=== PATIENT | male | born 1955 | race Caucasian/White ===

== ENCOUNTER 2021-10-06 11:35 | Day surgery (SDC) | payer MEDICARE, OTHER ==
[~2021-10-06] VITALS: Ht 177.8 cm; Wt 91.0 kg
[~2021-10-06 11:35] MED LIST: CANDICIDAL CAP1 EACH PO; FLOMAX0.4 MG PO; MELOXICAM5 MG PO; OXYCODON-ACETA1 EAC2 PO; PERCOCET 7.5-31 EACH PO
--- NOTE | 2021-10-06 15:14 | NUR ---
10/06/21 Avelino4 Kavitha Romero 1511- PT ARRIVES TO PACU AWAKE AND TALKING. PT REPORTS NO PAIN OR NAUSEA. RESP EVEN AND UNLABORED. OXYGEN SAT MID TO HIGH 90'S ON RA.
--- NOTE | 2021-10-06 17:54 | NUR ---
PT ARRIVED FROM PACU. REPORT RECEIVED FROM ESPERANZA CR. PT TRANSFERES SELF TO BED. ABLE TO AMBULATE ACROSS ROOM WITH OUT DIZZINESS OR OTHER ISSUES. PT DENIES PAIN, NASUEA, LIGHTHEADEDNESS OR OTHER S/S OF BRADYCARDIA. TELEMETRY MONITORING IN PLACE, SINUS BRADYCARDIA NOTED WITH HEAR RATE 50-60'S. HEART TONES REGULAR AT THIS TIME. PT REPORTS HE CONTINUES TO PASS MALORIE. ABDOMEN SOFT. BOWEL TONES ACTIVE. DINNER PROVIDED FOR PT. PT TOELRATING REGULAR DIET WIHOUT ISSUE AT THIS TIME. PT ALERT AND OREINTED. LUNG SOUNDS CLEAR. NO ADDITONAL REQUESTS OR COMPLAINTS. PT ORIENTED TO ROOM AND UPDATED ON PLAN OF CARE. CALL LIGHT WITHIN REACH. BED RAILS UP. BED ALARM ON.
--- NOTE | 2021-10-06 18:27 | NUR ---
PT CALL LIGHT ON. PT REPORTS NEED TO USE THE RESTROOM. PT AMBULATES TO RESTROOM WITH STAND BY ASSIST. HEART RATE 70-80'S WITH AMBULATION. PT DENIES DIZZINESS, LIGHTHEADEDNESS, CHEST PAIN OR OTHER S/S OF BRADICARDIA. PT VOIDS WITHOUT ISSUE AND AMBULATES BACK TO BED. PT FINISHING DINNER. NO ADDITIONAL REQUESTS OR COMPLAINTS. CALL LIGHT WITHIN REACH. BED RAILS UP. FAMILY AT BEDSIDE.
--- NOTE | 2021-10-06 18:58 | NUR ---
DR. CARRINGTON TO BEDSIDE AND STATES OK TO DISCHARGE PT. DISCHARGE INSTUCTIONS REVEWIED WITH PT BY DR. CARRINGTON. PT VERBALIZES UNDERSTANDING AND STATES HIS QUESTIONS HAVE BEEN ANSWERED. IV DC'D PER PROTOCOL, GAUZE AND COBAN APPLIED. VITAL SIGNS STABLE. PT DRESSES SELF, NO ASSISTANCE NEEDED. PT WHEEELD FROM MED/SURG TO MEET HIS . NO ADDITIONAL REQUESTS OR CONCERNS.
--- NOTE | 2021-10-08 15:57 | EKG ---
[facility] [address] [facility] [place] [address] Signed Sinus bradycardia with premature atrial complexes Otherwise normal ECG No previous ECGs available Confirmed by RENNY LUCERO MD ([id number]) on 10/08/2021 3:57:19 PM Electronically Signed By: RENNY LUCERO MD 10/08/21 1557 PATIENT NAME: CARLEY MOY Electrocardiogram DATE OF : 51 PHYSICIAN: RENNY LUCERO MD REPORT #: [id number] REPORT IS CONFIDENTIAL AND NOT TO BE RELEASED WITHOUT AUTHORIZATION
--- NOTE | 2021-10-09 16:30 | CONS ---
[facility] [address] [place], [place] [address] Signed DATE OF CONSULTATION: 10/06/2021 TIME: 3:50 p.m. PROBLEM: Post procedure bradycardia. HISTORY OF PRESENT ILLNESS: This 65-year-old white man has undergone in the past hour or so a total colonoscopy with hot snare polypectomy x1. He was doing well in recovery room, but then had an episode of bradycardia into the low 30s. This did result in some blood pressure drop initially according to his nurses, but with fluid resuscitation increased. He has no complaints of chest pain. No diaphoresis. He appeared to have likely an episode of vagal effect upon standing up, anticipating ambulation to the bathroom. He has apparently been passing some flatus in the recovery room as expected. He had another similar such episode and has remained supine. My examination shows him to have no complaints of chest pain and he has no diaphoresis. He does tell me that he has undergone evaluation of his heart approximately two years ago in an emergency room setting for what might have been a similar situation. REVIEW OF SYSTEMS: He has had no blood per rectum. No hematemesis. Denies any chest pain. Has no neck pain. No arm pain. PHYSICAL EXAMINATION: Pleasant white man whose pulse right now is 64, blood pressure 123/78. Neck is normal. Trachea is midline. There is no jugular venous distention. He has no diaphoresis. I reviewed an EKG that has been performed, which showed no sign of ischemic change that I can see. Troponin level, Chem 8 and magnesium is pending. ASSESSMENT: He may simply have the vagal effect in relation to abdominal distention from colonoscopy. I do not see signs of acute ischemia clinically or otherwise. I have asked Dr. Paez to evaluate him to ascertain if there is any other intervention or evaluation that should be undertaken. At this point, he is quite stable and without signs of decline in any way. Electronically Signed By: APOLONIA CARRINGTON MD 10/09/21 1630 PATIENT NAME: CARLEY MOY SIMI CONSULTATION DATE OF : 51 REPORT #: [id number] PHYSICIAN: APOLONIA CARRINGTON MD PCP: CASE VELASQUEZ MD REPORT IS CONFIDENTIAL AND NOT TO BE RELEASED WITHOUT AUTHORIZATION [address] [address] Signed Apolonia Carrington MD JM/MODL /[id number] cc: MD Regi Goff MD Copies: XAVIER DILLARD MD, LOHITH VEERAPPA MD ~ Electronically Signed By: APOLONIA CARRINGTON MD 10/09/21 1630 PATIENT NAME: CARLEY MOY CONSULTATION DATE OF : 51 REPORT #: [id number] PHYSICIAN: APOLONIA CARRINGTON MD PCP: CASE VELASQUEZ MD REPORT IS CONFIDENTIAL AND NOT TO BE RELEASED WITHOUT AUTHORIZATION
--- NOTE | 2021-10-09 16:30 | OR ---
[facility] [address] [place], [place] [address] Signed DATE OF OPERATION: 10/06/2021 SURGEON: Apolonia Carrington MD PREOPERATIVE DIAGNOSIS: Colon screening. POSTOPERATIVE DIAGNOSIS: 1 cm pedunculated polyp at 15 cm (excised). PROCEDURES: Total colonoscopy to the cecum with hot snare polypectomy x1. ANESTHESIA: Intravenous sedation; fentanyl 150 mcg and Versed 4 mg total. INDICATION: A 65-year-old white man, a patient of Dr. Case Dejesus, who underwent colonoscopy by Dr. Dejesus greater than 10 years ago in [place], [place] which was said to be normal. He is symptom free at this time. He is admitted to undergo colonoscopy. He understands the risks of bleeding, infection, and perforation. FINDINGS: The prep was excellent. Complete colonoscopy was undertaken to the cecum without question. The only finding was a relatively large 1 cm polyp at 15 cm, which was excised with hot snare polypectomy technique completely. There were no other findings of concern. DESCRIPTION OF PROCEDURE: The patient was brought to the endoscopy suite and placed in the lateral decubitus position, given intravenous sedation to the point of slurred speech and nystagmus with full cardiopulmonary monitoring. Digital rectal examination was normal. An Olympus video colonoscope was passed in the rectum and manipulated throughout the colon ultimately intubating the cecum itself. The ileocecal valve and appendiceal orifice were normal. The scope was withdrawn from that point and examination throughout showed no sign of abnormality until approximately 15 cm from the anal verge, where an obvious adenomatous polyp about 1 cm in size was noted. This was excised with hot snare Electronically Signed By: APOLONIA CARRINGTON MD 10/09/21 1630 PATIENT NAME: CARLEY MOY OPERATIVE REPORT DATE OF : 51 REPORT #: [id number] PHYSICIAN: APOLONIA CARRINGTON MD PCP: CASE DEJESUS MD REPORT IS CONFIDENTIAL AND NOT TO BE RELEASED WITHOUT AUTHORIZATION [facility] [address] [place], [place] [address] Signed polypectomy technique without problem. The specimen was passed for pathology. The excision site was hemostatic and there was no evidence of complication. Retroflexed view of the rectum was normal. Scope was removed and the patient was taken to the recovery room in good condition. CONCLUDING DIAGNOSIS: Polyp x1. PLAN: Recommend repeat colonoscopy in three years, sooner if clinically indicated. He will return to the ongoing care of Dr. Dejesus otherwise. MD ESME Nick/BERTHA /[id number] cc: Case Dejesus MD Copies: CASE DEJESUS MD ~ Electronically Signed By: APOLONIA CARRINGTON MD 10/09/21 1630 PATIENT NAME: CARLEY MOY OPERATIVE REPORT DATE OF : 51 REPORT #: [id number] PHYSICIAN: APOLONIA CARRINGTON MD PCP: CASE DEJESUS MD REPORT IS CONFIDENTIAL AND NOT TO BE RELEASED WITHOUT AUTHORIZATION
--- NOTE | 2021-10-10 13:49 | PATH ---
[facility] [address] [place], [place] [address] Signed SPECIMEN(S): A COLON POLYP AT 15 CM SPECIMEN SOURCE: A. COLON POLYP AT 15 CM CLINICAL HISTORY: Screening colonoscopy. Polyp. FINAL PATHOLOGIC DIAGNOSIS: Colon, polyp at 15 cm, polypectomy: - Tubulovillous adenoma. - Negative for high-grade dysplasia or malignancy. NAL:cml:C2NR MICROSCOPIC EXAMINATION: Histologic sections of all submitted blocks are examined by light microscopy. These findings, together with the gross examination, support the pathologic diagnosis. GROSS DESCRIPTION: The specimen, labeled "WM, 1," and designated on the requisition "15 cm polypectomy, colon," is received in formalin and consists of one pink-bisohp polyp (0.8 x 0.7 x 0.7 cm). The resection margin is inked blue, the specimen is trisected and submitted entirely in cassette A1. AC (under the direct supervision of a pathologist The Gross Description was prepared using a voice recognition system. The report was reviewed for accuracy; however, sound-alike word errors, addition and/or deletions may occur. If there is any question about this report, please contact Client Services. PERFORMING LABORATORY: The technical component was performed by [facility], [address] [place] [id number] (Furniture Arranger: Jillian Moreno MD; CLIA# [id number]). [facility], [address] [address] (CLIA# [id number]). Diagnostician: Breanne German MD Pathologist Electronically Signed 10/10/2021 PATIENT NAME: CARLEY MOY PATHOLOGY DATE OF : 51 REPORT #: [id number] PHYSICIAN: [facility] PCP: CASE VELASQUEZ MD REPORT IS CONFIDENTIAL AND NOT TO BE RELEASED WITHOUT AUTHORIZATION [address] [address] Signed Copies: ~ PATIENT NAME: CARLEY MOY PATHOLOGY DATE OF : 51 REPORT #: [id number] PHYSICIAN: [facility] PCP: CASE VELASQUEZ MD REPORT IS CONFIDENTIAL AND NOT TO BE RELEASED WITHOUT AUTHORIZATION
== END 2021-10-06 19:00 | disposition home or self-care (01) ==
LOC: OPS 11:35 → DS 11:43 → OPS 13:00 → DS 13:00 → OPS 19:00
PROVIDERS: ATTEND Surgery
PROC: 0DBE8ZZ Excision of Large Intestine, Via Natural or Artificial Opening Endoscopic (ICD-10-PCS; principal; 2021-10-06 13:00)
DX: Z12.11 Encounter for screening for malignant neoplasm of colon (principal); D12.6 Benign neoplasm of colon, unspecified; I97.191 Other postprocedural cardiac functional disturbances following other surgery; R55 Syncope and collapse; N40.0 Benign prostatic hyperplasia without lower urinary tract symptoms; Y83.8 Other surgical procedures as the cause of abnormal reaction of the patient, or of later complication, without mention of misadventure at the time of the procedure; Z98.1 Arthrodesis status; Z98.890 Other specified postprocedural states
CPT/HCPCS: 36415; 80048; 83735; 84484; 99153; G0500; J2250; J3010; J7121

== ENCOUNTER 2024-10-14 12:35 | Day surgery (SDC) | payer MEDICARE, OTHER ==
[~2024-10-14] VITALS: Ht 177.8 cm; Wt 95.3 kg
[~2024-10-14 12:35] MED LIST changes: +HYDROCODON-ACE1 EA10 PO; +IBLOOD GLUCOSE TEST STRIP 1 EA TEST VI PRN; +LACTATED RINGER'S 1,000 ML IV SCH; +LIDOCAINE HCL 1% 5 ML SDV INJ ONE; +MELOXICAM15 MG PO; -MELOXICAM5 MG PO; +MIDAZOLAM HCL 5 MG/5 ML VIAL IV PRN; +TAMSULOSIN HCL0.4 MG PO; +VITAMIN D350 MCG PO; +fentaNYL citrate 100 MCG/2 ML VIAL IV PRN
[2024-10-14 14:35] VITALS: BP 124/75
[2024-10-14] MEDS ORDERED: MIDAZOLAM HCL 5 MG/5 ML VIAL ONE (14:52)
[2024-10-14] MEDS ORDERED: fentaNYL citrate 100 MCG/2 ML VIAL ONE ×2 (14:52→15:59)
--- NOTE | 2024-10-14 16:38 | NUR ---
10/14/24 1638 Juana Gaytan OXYGEN SATURATION 95% ON 2L VIA NC. OXYGEN IS DISCONTINUED AT THIS TIME. HOB IS ELEVATED. WATER IS GIVEN.
[2024-10-14 17:16] VITALS: BP 132/84
--- NOTE | 2024-10-16 08:02 | OR ---
[facility] [address] [place], [place] [address] Signed DATE OF OPERATION: 10/14/2024 SURGEON: Apolonia Carrington MD PREOPERATIVE DIAGNOSIS: History of tubulovillous adenoma at 15 cm in 2021. POSTOPERATIVE DIAGNOSES: 1. No evidence of recurrent polyp. 2. Sigmoid diverticulosis. PROCEDURE: Total colonoscopy to cecum. ANESTHESIA: Intravenous sedation; fentanyl 150 mcg and Versed 5 mg. INDICATION: This 68-year-old white man is a patient of Dr. Case Dejesus and underwent colonoscopy in 2021, which showed a tubulovillous adenoma at 15 cm. He had not undergone colonoscopy in the preceding 10 years. His previous scope had been normal. He does have family history of colon cancer in his father, who of the disease. On the basis of that fact and his previous polyp, I have recommended repeat colonoscopy in this timeframe. He understands the risk of colonoscopy including but not limited to bleeding, infection, and perforation and wished to proceed. FINDINGS: The prep was adequate. Complete colonoscopy was undertaken to the cecum. Numerous diverticula were seen in the sigmoid and left colon, but no evidence of polyp or recurrent polyp. DESCRIPTION OF PROCEDURE: The patient was brought to the endoscopy suite and placed in the lateral decubitus position, given intravenous sedation to the point of slurred speech and nystagmus. Digital rectal examination was normal. An Olympus video colonoscope was passed in the rectum and manipulated throughout the colon. Irrigation was undertaken as needed. The scope was ultimately advanced to the cecum. Ileocecal valve and appendiceal orifice were normal. The scope was withdrawn and with irrigation upon withdrawal of the scope, careful examination undertaken. This Electronically Signed By: APOLONIA CARRINGTON MD 10/16/24 0802 PATIENT NAME: CARLEY MOY OPERATIVE REPORT DATE OF : 51 REPORT #: [id number] PHYSICIAN: APOLONIA CARRINGTON MD PCP: CASE DEJESUS MD REPORT IS CONFIDENTIAL AND NOT TO BE RELEASED WITHOUT AUTHORIZATION [facility] [address] [place], [place] [address] Signed showed only diverticulosis of the left colon and sigmoid. Retroflexed view was normal as well. There was no evidence of polyp or recurrent polyp. The scope was removed and the patient was taken to the recovery room in good condition. CONCLUDING DIAGNOSIS: Diverticulosis. No evidence of polyps. PLAN: Recommend repeat colonoscopy in 5 years based on family history, sooner if symptoms should develop. He will return to the ongoing care of Dr. Case Dejesus otherwise. MD ESME Nick/BERTHA /[id number] cc: Case Dejesus MD Copies: CASE DEJESUS MD ~ Electronically Signed By: APOLONIA CARRINGTON MD 10/16/24 0802 PATIENT NAME: CARLEY MOY OPERATIVE REPORT DATE OF : 51 REPORT #: [id number] PHYSICIAN: APOLONIA CARRINGTON MD PCP: CASE DEJESUS MD REPORT IS CONFIDENTIAL AND NOT TO BE RELEASED WITHOUT AUTHORIZATION
== END 2024-10-14 17:23 | disposition home or self-care (01) ==
LOC: DS 12:35
PROVIDERS: ATTEND Surgery
PROC: 0DJD8ZZ Inspection of Lower Intestinal Tract, Via Natural or Artificial Opening Endoscopic (ICD-10-PCS; principal; 2024-10-14 14:00)
DX: Z12.11 Encounter for screening for malignant neoplasm of colon (principal); K57.30 Diverticulosis of large intestine without perforation or abscess without bleeding; Z86.0101 Personal history of adenomatous and serrated colon polyps; Z80.0 Family history of malignant neoplasm of digestive organs; G56.03 Carpal tunnel syndrome, bilateral upper limbs
CPT/HCPCS: G0105; 99153; G0500; J2250; J3010; J7121